=== PATIENT | female | born 1960 | race Caucasian/White ===

== ENCOUNTER 2017-10-19 10:29 | Day surgery (SDC) | payer OTHER ==
[2017-10-19] MEDS ORDERED: MIDAZOLAM 1 MG/ML 2 ML INJ ×2 (12:30)
[2017-10-19] MEDS ORDERED: FENTAnyl 50 MCG/ML VIAL (12:30)
== END 2017-10-19 14:07 | disposition home or self-care (01) ==
LOC: GIL 10:29
DX: K29.70 Gastritis, unspecified, without bleeding (principal); K64.8 Other hemorrhoids; I10 Essential (primary) hypertension
CPT/HCPCS: 43239; 82962; 87081; 88305